=== PATIENT | female | born 1985 | race Caucasian/White ===

== ENCOUNTER 2017-01-29 19:45 | Emergency (ER) | payer MEDICAID, OTHER ==
[~2017-01-29] VITALS: Ht 172.7 cm; Wt 82.0 kg
[~2017-01-29 19:45] MED LIST: HYDR2.5%T RECTAL; IBUP-232 PO; PREN29TA PO; SACC1CAP3 PO
[2017-01-29 19:47] VITALS: BP 171/103; PULSE 128; RESP 18; TEMP 98.7; O2SAT 98
--- NOTE | 2017-01-29 20:03 | PD ---
HPI Chief Complaint: Back/ Neck Pain or Injury Time Seen by Provider: 20:03 Travel History International Travel<30 days: No Contact w/Intl Traveler<30days: No Traveled to known affect area: No History of Present Illness HPI 31-year-old female presents to emergency department for evaluation of low back pain. Patient states that she was sitting on a picnic bench when it broke. She landed directly on her buttocks. Pain is 6 out of 10. She states age and her back and she was okay at first but she began having increasing pain in the lower back. Denies any focal deficits or weakness. No saddle paresthesia, no loss of bowel or bladder. No other symptoms to report. PFSH Past Medical History Arthritis: No Asthma: No Autoimmune Disease: No Blood Disorders: No Anxiety: Yes Depression: Yes Heart Rhythm Problems: No Cancer: No Cardiovascular Problems: No High Cholesterol: No Chest Pain: No Congestive Heart Failure: No COPD: No Cerebrovascular Accident: No Diabetes: No Diminished Hearing: No Endocrine: No GERD: No Genitourinary: No Headaches: No Hepatitis: No Hiatal Hernia: No Hypertension: No Immune Disorder: No Kidney Stones: No Musculoskeletal: No Neurologic: Yes Psychiatric: Yes Reproductive: No Respiratory: No Immunizations Current: Yes Migraines: No Myocardial Infarction: No Renal Failure: No Seizures: No Sickle Cell Disease: No Sleep Apnea: No Thyroid Disease: No Ulcer: No ?: Not : 2 Para: 1 : 1 Past Surgical History Abdominal Surgery: No Appendectomy: No Cardiac Surgery: No Cholecystectomy: No Ear Surgery: No Endocrine Surgery: No Eye Surgery: No Genitourinary Surgery: No Gynecologic Surgery: No Oral Surgery: No Thoracic Surgery: No Other Surgery: Yes (RIGHT ARM TITANUM RODS AND PINS) Social History Alcohol Use: Yes (OCC) Tobacco Use: Yes (09/13 PPWEEKEND) Substance Use: No (HX IV DRUG ABUSE) Allergies-Medications (Allergen,Severity, Reaction): Coded Allergies: Vancomycin (Verified Allergy, Severe, NUMBNESS, 01/29/17) Adhesives (Verified Allergy, Unknown, hives, 01/29/17) Reported Meds & Prescriptions Reported Meds & Active Scripts Active Robaxin (Methocarbamol) 500 Mg Tab 500 Mg PO QID PRN Ibuprofen 800 Mg Tab 800 Mg PO Q8H PRN Reported [place] Wort (Piero's Wort ([place] Perf) 300 Mg Cap OROPHARYNG DAILY Review of Systems Except as stated in HPI: all other systems reviewed are Neg Physical Exam Narrative GENERAL: Well-nourished, well-developed female patient, ambulatory with a nonantalgic gait in no acute distress SKIN: Focused skin assessment warm/dry. HEAD: Normocephalic. EYES: No scleral icterus. No injection or drainage. NECK: Supple, trachea midline. No JVD or lymphadenopathy. CARDIOVASCULAR: Regular rate and rhythm without murmurs, gallops, or rubs. RESPIRATORY: Breath sounds equal bilaterally. No accessory muscle use. GASTROINTESTINAL: Abdomen soft, non-tender, nondistended. MUSCULOSKELETAL: No cyanosis, or edema. Midline lumbar tenderness. BACK: No obvious deformity. No CVA tenderness. Data Data Last Documented VS Vital Signs Date Time Temp Pulse Resp B/P Pulse Ox O2 Delivery O2 Flow Rate FiO2 01/29/17 21:35 85 01/29/17 19:47 98.7 18 171/103 98 Room Air Orders Spine, Lumbar - Ltd (Ap & Lat) (01/29/17 ) Ketorolac Inj (Toradol Inj) (01/29/17 20:30) Orphenadrine Inj (Norflex Inj) (01/29/17 20:30) Corset Quick Draw (01/29/17 ) Brace Quick Draw Corset (01/29/17 ) MDM Medical Decision Making Medical Screen Exam Complete: Yes Emergency Medical Condition: Yes Medical Record Reviewed: Yes Differential Diagnosis Lumbar strain versus discogenic pain versus radiculopathy versus compression fracture Narrative Course 31 year old female presents to emergency room for evaluation of low back pain. Patient did have a fall directly onto her buttocks, during her lower back. She does have lumbar spine tenderness. X-ray imaging is ordered and resulted with no acute bony abnormality. There is some narrowing of L4-L5 disc space. There is some chronic change at the anterior superior aspect of L5 vertebral body potentially from prior injury. Finding was clearly present on prior CT in July 08, 2011. Last Impressions Lumbar Spine X-Ray 01/29/17 0000 Signed Impressions: Service Date/Time: Sunday, January 29, 2017 20:31 - CONCLUSION: 1. Narrowing of the L4-L5 disc space. 2. Chronic change at the anterior-superior aspect of the L5 vertebral body potentially from a prior injury. This finding was clearly present on a prior CT examination from 07/08/2011. Husam Riojas MD Patient is placed in a quick draw back brace. She is provided pain control. She is counseled on care. She agrees to return immediately with any acute worsening symptoms. Diagnosis Primary Impression: Low back pain Qualified Code: M54.41 - Acute bilateral low back pain with right-sided sciatica Referrals: Primary Care Physician Patient Instructions: Back Pain (ED), General Instructions Additional Instructions: Ice and/or warm moist heat may help to alleviate symptoms Follow-up with a primary care provider Wear brace for support Do not wear this at all times as it may begin your core muscles, worsening her back pain Return immediately with any acute worsening of symptoms Med/Other Pt SpecificInfo: Prescription(s) given Scripts Methocarbamol (Robaxin)500 Mg Enh688 Mg PO QID PRN (MUSCLE SPASM) #20 TAB Ref 0 Prov:Tess Somers 01/29/17 Ibuprofen 800 Mg [id number] Mg PO Q8H PRN (Pain/Inflammation) #30 TAB Ref 0 Prov:Tess Somers 01/29/17 Disposition: 01 DISCHARGE HOME Condition: Stable Tess Somers January 29, 2017 20:03
[2017-01-29] MEDS ORDERED: KETOROLAC TROMETHAMINE 60 MG/2 ML (IM) VIAL IM ONE (20:30)
[2017-01-29] MEDS ORDERED: ORPHENADRINE INJ 60 MG/2 ML AMP IM ONE (20:30)
[2017-01-29 20:53] VITALS: PULSE 118
[2017-01-29] MEDS ORDERED: ST J1CAP OROPHARYNG (20:53)
--- NOTE | 2017-01-29 21:17 | RADRPT ---
EXAM DATE/TIME: 01/29/2017 20:31 [facility] COMPARISON: CT ABDOMEN & PELVIS W/O CONTRAST, July 08, 2011, 16:12. INDICATIONS : Patient fell today and landed hitting lower back on picnic table. Complains of lower back pain more t o left side of back. MEDICAL HISTORY : None. SURGICAL HISTORY : None. ENCOUNTER: Initial ACUITY: 1 day PAIN SCORE: 9/10 LOCATION: L-Spine FINDINGS: The lumbar vertebral bodies are normally aligned and normal in height. There is a bony fragment seen at the anterior-superior aspect of the L5 vertebral body. This appears chronic and well-corticated. This separate bony density was seen on a prior CT examination confirming this is chronic. The shanthi ent does have disc space narrowing at the L4-L5 level. The remaining disc spaces appear normal in he ight. The facet joints are normal. CONCLUSION: 1. Narrowing of the L4-L5 disc space. 2. Chronic change at the anterior-superior aspect of the L5 vertebral body potentially from a prior injury. This finding was clearly present on a prior CT examination from 07/08/2011. Husam Riojas MD on January 29, 2017 at 21:04 Board Certified Radiologist. This report was verified electronically.
[2017-01-29] MEDS ORDERED: IBUP800T23 PO (21:33)
[2017-01-29] MEDS ORDERED: ROBA500T PO (21:33)
[2017-01-29 21:35] VITALS: PULSE 85
== END 2017-01-29 21:58 | disposition home or self-care (01) ==
LOC: NEPD 19:45
DX: M54.41 Lumbago with sciatica, right side (principal)
CPT/HCPCS: 72100; 96372; 99283; J1885; J2360; L0627